=== PATIENT | male | born 1940 | race Two or more races ===

== ENCOUNTER 2018-07-20 07:02 | Inpatient (IN) | payer MEDICARE, MEDICAID ==
[~2018-07-20] VITALS: Ht 167.6 cm; Wt 63.5 kg
[2018-07-20] MEDS ORDERED: SODIUM CHLORIDE 0.9% 1,000 ML IV ONE ×2 (07:37→13:12)
[2018-07-20 08:42] LABS: BASOPHILS % 1.1 % (0.0-2.0); EOSINOPHILS % 7.2 % (0.0-5.0); HEMATOCRIT. 33.6 % (42.0-52.0); HEMOGLOBIN. 10.9 g/dL (14.0-18.0); LYMPHOCYTES % 22.2 % (20.0-50.0); MEAN CORPUSCULAR VOLUME 98.4 fL (80.0-94.0); MEAN PLATELET VOLUME 9.3 fl (7.4-10.4); MONOCYTES % 7.7 % (2.0-8.0); NEUTROPHILS % 61.8 % (40.0-76.0); PLATELET 125 x1000/uL (130-400); RED BLOOD CELL COUNT 3.41 mill/uL (4.7-6.1); RED CELL DISTRIBUTION WIDTH 16.3 % (11.6-14.6)
[2018-07-20 08:45] LABS: CHLORIDE 99 mEq/L (98-107)
[2018-07-20 08:58] LABS: INR 1.1; PARTIAL THROMBOPLASTIN TIME 26.1 sec (23.4-31.0); PROTHROMBIN TIME 11.8 sec (9.6-11.0)
[2018-07-20] MEDS ORDERED: MORPHINE SULFATE 2 MG/ML CPJ (NOT FOR IM USE) IV ONE ×2 (09:15→09:45)
[2018-07-20] MEDS: MORPHINE SULFATE 4 MG/ML CPJ (NOT FOR IM USE) IV NR ×2 (09:33→10:32)
[2018-07-20] MEDS ORDERED: MORPHINE SULFATE 4 MG/ML CPJ (NOT FOR IM USE) IV NR (10:15)
[2018-07-20] MEDS ORDERED: MORPHINE SULFATE 4 MG/ML CPJ (NOT FOR IM USE) IV ONE (10:15)
[2018-07-20] MEDS ORDERED: BACITRACIN 15GM TUBE TOP ONE (10:17)
[2018-07-20] MEDS ORDERED: BUPIVACAINE HCL/PF 0.5% (5MG/ML) 10ML ONE (10:17)
[2018-07-20] MEDS ORDERED: LIDOCAINE HCL 1% 20ML VIAL (Pyxis) INJ ONE (10:17)
[2018-07-20] MEDS ORDERED: HEPARIN SODIUM 1,000 UNIT/1ML VIAL IV ONE (10:17)
[2018-07-20] MEDS ORDERED: PAPAVERINE HCL 30 MG/ML 2ML IV ONE (10:17)
[2018-07-20] MEDS ORDERED: THROMBIN (BOVINE) 5000 UNITS/VIAL TOP ONE (10:17)
[2018-07-20] MEDS ORDERED: NORMAL SALINE 0.9% 10 ML SYR ONE (10:18)
[2018-07-20] MEDS ORDERED: BACITRACIN 50,000 UNITS/VIAL ONE (10:18)
[2018-07-20] MEDS ORDERED: ACETAMINOPHEN 325MG TABLET PO PRN (10:30)
[2018-07-20] MEDS ORDERED: ONDANSETRON HCL 4MG/2ML INJ IV PRN ×2 (10:30→13:15)
[2018-07-20] MEDS ORDERED: HYDROCODONE/ACETAMINOPHEN 5/325MG TABLET PO PRN (10:30)
[2018-07-20] MEDS ORDERED: IPRATROPIUM/ALBUTEROL 0.5-3(2.5)MG/3ML NEB HHN PRN (10:30)
[2018-07-20] MEDS ORDERED: DEXTROSE 50% WATER 50ML SYRINGE IV PRN (10:30)
[2018-07-20] MEDS ORDERED: MORPHINE SULFATE 4 MG/ML CPJ (NOT FOR IM USE) IV PRN ×2 (10:30→13:15)
[2018-07-20] MEDS ORDERED: METOCLOPRAMIDE HCL 10MG/2ML VIAL ONE (11:07)
[2018-07-20] MEDS ORDERED: SUCCINYLCHOLINE CHLORIDE 200MG/10ML IV ONE (11:07)
[2018-07-20] MEDS ORDERED: FENTANYL CITRATE/PF 50MCG/ML 2ML VIAL ONE (11:07)
[2018-07-20] MEDS ORDERED: GLYCOPYRROLATE 0.2 MG/ML 2ML VIAL ONE (11:07)
[2018-07-20] MEDS ORDERED: LIDOCAINE HCL/PF 1% 10 MG/ML 5ML VIAL ONE (11:07)
[2018-07-20] MEDS ORDERED: ONDANSETRON HCL 4MG/2ML INJ ONE (11:07)
[2018-07-20] MEDS ORDERED: PROPOFOL 200MG/20ML VIAL IV ONE (11:07)
[2018-07-20] MEDS ORDERED: MIDAZOLAM HCL 2 MG/2 ML VIAL ONE (11:07)
[2018-07-20] MEDS ORDERED: ROPIVACAINE HCL 10MG/ML 20 ML VIAL EPI ONE (11:09)
[2018-07-20] MEDS ORDERED: HEPARIN 5000 UNITS/ML VIAL ONE (11:49)
[2018-07-20] MEDS ORDERED: ALBUMIN HUMAN 12.5G/250ML (5%) IV ONE (11:50)
[2018-07-20] MEDS ORDERED: HYDROMORPHONE HCL/PF 2MG/ML CPJ IV PRN (13:15)
[2018-07-20] MEDS ORDERED: CLONIDINE 0.1MG TABLET PO PRN (14:45)
[2018-07-20 16:00] VITALS: BP 158/62
[2018-07-20 16:13] VITALS: BP 158/62
[2018-07-20] MEDS ORDERED: HYDR-4133 MT (16:42)
[2018-07-20] MEDS ORDERED: ATOR10TA69 MT (16:42)
[2018-07-20] MEDS ORDERED: ASPI-986 MT (16:42)
[2018-07-20] MEDS ORDERED: PANT20TA3 MT (16:42)
[2018-07-20] MEDS ORDERED: CLOP75TA16 MT (16:42)
[2018-07-20] MEDS ORDERED: LEVVL SQ (16:42)
[2018-07-20] MEDS ORDERED: FERR140T2 MT (16:42)
[2018-07-20] MEDS ORDERED: FOLI0.8T23 MT (16:42)
[2018-07-20] MEDS ORDERED: LOSA25TA12 MT (16:42)
[2018-07-20] MEDS ORDERED: LYR25 MT (16:42)
[2018-07-20] MEDS ORDERED: METO25TA6 MT (16:42)
[2018-07-20] MEDS ORDERED: DOXA1TAB2 MT (16:42)
[2018-07-20] MEDS ORDERED: SEVE800T8 MT (16:42)
[2018-07-20] MEDS ORDERED: ALLO100T MT (16:42)
[2018-07-20] MEDS ORDERED: CILO50TA MT (16:42)
[2018-07-20] MEDS: INSULIN LISPRO 100 UNITS/ML SUBCUT SCH ×3 (17:43→22:09)
[2018-07-20] MEDS: BLOOD SUGAR DIAGNOSTIC STRIP TEST SCH ×2 (17:44→22:00)
[2018-07-20 19:50] VITALS: BP 157/57
[2018-07-20 23:55] VITALS: BP 151/62
[2018-07-21 03:55] VITALS: BP 164/61
[2018-07-21] MEDS: INSULIN LISPRO 100 UNITS/ML SUBCUT SCH ×2 (06:43→12:50)
[2018-07-21] MEDS: BLOOD SUGAR DIAGNOSTIC STRIP TEST SCH ×2 (06:43→12:20)
[2018-07-21 08:00] VITALS: BP 173/69
[2018-07-21 11:10] LABS: BASOPHILS % 0.9 % (0.0-2.0); EOSINOPHILS % 5.6 % (0.0-5.0); HEMATOCRIT. 25.6 % (42.0-52.0); LYMPHOCYTES % 16.6 % (20.0-50.0); MEAN CORPUSCULAR HEMOGLOBIN 32.2 pg (28.0-32.0); MEAN CORPUSCULAR VOLUME 97.7 fL (80.0-94.0); MONOCYTES % 3.5 % (2.0-8.0); NEUTROPHILS % 73.4 % (40.0-76.0); PLATELET 110 x1000/uL (130-400); RED BLOOD CELL COUNT 2.62 mill/uL (4.7-6.1); RED CELL DISTRIBUTION WIDTH 15.9 % (11.6-14.6)
[2018-07-21 11:13] LABS: HEMOGLOBIN. 8.4 g/dL (14.0-18.0)
[2018-07-21 12:00] VITALS: BP 103/51
[2018-07-21 13:56] VITALS: BP 103/68
== END 2018-07-21 15:54 | disposition home or self-care (01) | DRG 264 ==
LOC: ER 07:02 → 6EST 10:25 → CANBEDREQ 15:23
PROVIDERS: ADMIT Internal Medicine Nephrology; ATTEND Internal Medicine Nephrology
PROC: 03180KD Bypass Left Brachial Artery to Upper Arm Vein with Nonautologous Tissue Substitute, Open Approach (ICD-10-PCS; principal; 2018-07-20)
PROC: 5A1D70Z Performance of Urinary Filtration, Intermittent, Less than 6 Hours Per Day (ICD-10-PCS; 2018-07-21)
DX: T82.838A Hemorrhage due to vascular prosthetic devices, implants and grafts, initial encounter (principal); N18.6 End stage renal disease; T82.318A Breakdown (mechanical) of other vascular grafts, initial encounter; E44.1 Mild protein-calorie malnutrition; I12.0 Hypertensive chronic kidney disease with stage 5 chronic kidney disease or end stage renal disease; E11.22 Type 2 diabetes mellitus with diabetic chronic kidney disease; D63.8 Anemia in other chronic diseases classified elsewhere; T82.898A Other specified complication of vascular prosthetic devices, implants and grafts, initial encounter; Y83.2 Surgical operation with anastomosis, bypass or graft as the cause of abnormal reaction of the patient, or of later complication, without mention of misadventure at the time of the procedure; Y92.89 Other specified places as the place of occurrence of the external cause; Z99.2 Dependence on renal dialysis; Z68.22 Body mass index [BMI] 22.0-22.9, adult
CPT/HCPCS: 36415; 71045; 80048; 82962; 84145; 84484; 86850; 86900; 88304; 93005; 99285; C1768; J0330; J1644; J1815; J2250; J2270; J2405; J2440; J2704; J2765; J2795; J3010; J3490; J7030; J7040; P9041